=== PATIENT | female | born 1955 | race Caucasian/White ===

== ENCOUNTER 2019-05-10 13:51 | Outpatient (CLI) | payer MEDICARE, OTHER ==
--- NOTE | 2019-05-10 14:55 | BD ---
DEXA BONE DENSITY SCAN: DATE: 05/10/2019 COMPARISON: 04/17/2015. HISTORY: Postmenopausal female undergoing screening for osteoporosis. FINDINGS: Lumbar Spine BMD (g/cm2) L1 0.869 T-Score -1.1 (previous -0.9) L2 0.850 T-Score -1.6 (previous -1.3) L3 1.024 T-Score -0.5 (previous -0.5) L4 0.985 T-Score -0.7 (previous -1.1) L1-L4 0.937 T-Score -1.0 (previous -1.0) Femoral Neck 0.647 T-Score -1.8 (previous -1.2) Total Femur 0.803 T-Score -1.1 (previous -1.4) The FRAX-WHO fracture risk assessment tool reports a 10 year fracture risk in an untreated patient at 18% for major osteoporotic fracture and 1.2% for hip fracture. IMPRESSION: Normal lumbar spine bone mineral density. There is osteopenia within the femoral neck, correlating wi th a moderately increased risk for fracture. Transcribed Date/Time: 05/10/2019 3:37 PM
== END 2019-05-10 13:52 | disposition home or self-care (01) ==
LOC: BICMAMMO 13:51
PROVIDERS: ATTEND Internal Medicine Rheumatology
DX: M81.0 Age-related osteoporosis without current pathological fracture (principal); M85.89 Other specified disorders of bone density and structure, multiple sites
CPT/HCPCS: 77080